=== PATIENT | male | born 1960 | race African-American/Black ===

== ENCOUNTER 2016-08-04 14:51 | Emergency (ER) | payer SELFPAY ==
[~2016-08-04] VITALS: Ht 167.6 cm; Wt 61.0 kg
[~2016-08-04 14:51] MED LIST: Z.0.NO CURRENT MEDS
[2016-08-04 14:53] VITALS: BP 137/66; PULSE 93; RESP 15; TEMP 97.7; O2SAT 99
--- NOTE | 2016-08-04 15:46 | PD ---
HPI Chief Complaint: Complaint Time Seen by Provider: 15:40 Travel History International Travel<30 days: No Contact w/Intl Traveler<30days: No Traveled to known affect area: No History of Present Illness HPI Patient is a 56-year-old male presenting to emergency department for evaluation of a hernia as well as a swollen testicle. Patient states he has a right inguinal hernia has been present for approximately one year. Patient states it' s been getting larger however he is able to reduce it. He has no changes in his bowel habits, no abdominal pain. Patient also complains of left testicular swelling. Patient states this started 2 weeks ago. He denies any dysuria, he states he has sexual relations with the same person, no recent risky sexual behavior. Patient states the left testicle is 3-4 times larger than the right testicle. PFSH Past Medical History Medical History: Denies Significant Hx Tetanus Vaccination: Unknown Influenza Vaccination: No Past Surgical History Surgical History: No Previous Surgery Social History Alcohol Use: No Tobacco Use: Yes (2-3 CIGARS PER DAY) Substance Use: No Allergies-Medications (Allergen,Severity, Reaction): Coded Allergies: Tetracycline (Verified Allergy, Severe, 08/04/16) Reported Meds & Prescriptions Reported Meds & Active Scripts Active No Active Prescriptions or Reported Medications Review of Systems Except as stated in HPI: all other systems reviewed are Neg Genitourinary: Positive: Other (right inguinal hernia, left testicle swollen) Physical Exam Narrative GENERAL: Well-developed, well-nourished female resting comfortably in no acute distress. SKIN: Warm and dry. HEAD: Atraumatic. Normocephalic. EYES: Pupils equal and round. No scleral icterus. No injection or drainage. ENT: No nasal bleeding or discharge. Mucous membranes pink and moist. NECK: Trachea midline. No JVD. CARDIOVASCULAR: Regular rate and rhythm. No murmur appreciated. RESPIRATORY: No accessory muscle use. Clear to auscultation. Breath sounds equal bilaterally. GASTROINTESTINAL: Abdomen soft, non-tender, nondistended. Hepatic and splenic margins not palpable. Right inguinal hernia, easily reducible. GENITOURINARY: Circumcised. Testes descended bilaterally without evidence of rotation. No lesions or erythema. No urethral discharge. Left testicle is significantly larger than the right, tender to palpation. No erythema, no fluctuance noted. MUSCULOSKELETAL: No obvious deformities. No clubbing. No cyanosis. No edema. NEUROLOGICAL: Awake and alert. No obvious cranial nerve deficits. Motor grossly within normal limits. Normal speech. PSYCHIATRIC: Appropriate mood and affect; insight and judgment normal. Data Data Last Documented VS Vital Signs Date Time Temp Pulse Resp B/P Pulse Ox O2 Delivery O2 Flow Rate FiO2 08/04/16 14:53 97.7 93 15 137/66 99 Orders Urinalysis - C+S If Indicated (08/04/16 15:39) Gc And Chlamydia Pcr (08/04/16 15:39) Us Testicles W Doppler (08/04/16 15:39) Labs Laboratory Tests Test 08/04/16 15:45 Urine Color YELLOW Urine Turbidity CLEAR Urine pH 6.0 Urine Specific [place] 1.032 Urine Protein 30 mg/dL Urine Glucose (UA) NEG mg/dL Urine Ketones NEG mg/dL Urine Occult Blood NEG Urine Nitrite NEG Urine Bilirubin NEG Urine Urobilinogen 2.0 MG/DL Urine Leukocyte Esterase SMALL Urine RBC 2 /hpf Urine WBC 9 /hpf Urine Bacteria RARE /hpf Urine Mucus MANY /lpf Microscopic Urinalysis Comment CULT NOT INDICATED MDM Medical Decision Making Medical Screen Exam Complete: Yes Emergency Medical Condition: Yes Interpretation(s) Vital Signs Date Time Temp Pulse Resp B/P Pulse Ox O2 Delivery O2 Flow Rate FiO2 08/04/16 14:53 97.7 93 15 137/66 99 Differential Diagnosis Epididymitis versus epididymal orchitis versus STI versus urinary tract infection versus other Narrative Course Patient is a 56 year old male presented to the emergency department for evaluation of 2 weeks of left testicle swelling as well as right inguinal hernia. Hernia present for over a year, it is easily reducible. Positive bowel sounds, there is no change in his bowel habits. Regarding the testicle, he states it got more painful which is what prompted the ER visit. Patient also thought it would get better on its own. He has had sexual contact but states that with the same partner. Possibility of epididymitis versus chronic epididymoorchitis. UA, GC chlamydia ordered and pending. Testicular ultrasound ordered and pending. Care of patient will be transferred to Dr. Dr. Pang in medical pod Scripts No Active Prescriptions or Reported Meds Aundrea Boyd Aug 04, 2016 15:46
[2016-08-04 16:25] LABS: BACTERIA, URINE RARE /hpf; BLOOD, URINE NEG (NEG); COMMENT (UR) CULT NOT INDICATED; CULTURE IF INDICATED CULT NOT INDICATED; GLUCOSE,URINE NEG (NEG); KETONE, URINE NEG (NEG); MUCUS URINE MANY /lpf (OCC); NITRITE,URINE NEG (NEG); URINE COLOR YELLOW (YELLW/STRAW)
--- NOTE | 2016-08-04 17:16 | PD ---
Data Data Last Documented VS Vital Signs Date Time Temp Pulse Resp B/P Pulse Ox O2 Delivery O2 Flow Rate FiO2 08/04/16 14:53 97.7 93 15 137/66 99 Orders Urinalysis - C+S If Indicated (08/04/16 15:39) Gc And Chlamydia Pcr (08/04/16 15:39) Us Testicles W Doppler (08/04/16 15:39) Labs Laboratory Tests Test 08/04/16 15:45 Urine Color YELLOW Urine Turbidity CLEAR Urine pH 6.0 Urine Specific [place] 1.032 Urine Protein 30 mg/dL Urine Glucose (UA) NEG mg/dL Urine Ketones NEG mg/dL Urine Occult Blood NEG Urine Nitrite NEG Urine Bilirubin NEG Urine Urobilinogen 2.0 MG/DL Urine Leukocyte Esterase SMALL Urine RBC 2 /hpf Urine WBC 9 /hpf Urine Bacteria RARE /hpf Urine Mucus MANY /lpf Microscopic Urinalysis Comment CULT NOT INDICATED MDM Supervised Visit with [facility]IS: Yes Narrative Course I, Dr. Godinez, have reviewed the advance practice practitioner's documentation and am in agreement, met with the patient face to face, made the diagnosis, and the medical decision making was done by me. See her note for further details. The patient was initially evaluated in triage and transferred to a medical pot when it became available. Briefly this is a 56-year-old male who presented to the emergency department for evaluation of right inguinal hernia as well as a swollen left testicle. The patient reports that he has had the right inguinal hernia for over one year and it is easily reducible. Patient noticed left testicular pain and swelling that started about one week ago. He was hoping that it would get better, however it has not, so he is here today for evaluation. He is sexually active with one partner. No dysuria or penile drainage. He denies testicular trauma. No fevers or chills. No nausea or vomiting. On physical exam the patient has an easily reducible right inguinal hernia that is nontender. His left testicle is significantly larger than his right testicle and is swollen. Overlying scrotal skin is normal appearing, not erythematous, no crepitus, no induration. Differential includes orchitis, STD, epididymitis, testicular torsion. Testicular ultrasound ordered. Testicular ultrasound: CONCLUSION: 1. Highly complex large hydrocele on the left with small simple hydrocele on the right. There is bilateral hyperemia suggesting an inflammatory process. I discussed the case with on-call urologist Dr. Young who recommends treating the patient with antibiotics for 10 days and follow-up as an outpatient. The patient was made aware of all findings and of plan. He is resting comfortably. Again his right inguinal hernia is easily reducible, no signs of strangulation or incarceration. His abdominal exam is benign. He was informed on when to return to the emergency department. He verbalizes understanding and agreement with plan. Diagnosis Primary Impression: Orchitis Additional Impression: Hydrocele Qualified Code: N43.1 - Infected hydrocele Referrals: Jerardo Young DO 1 week Urologist Additional Instruction: Follow-up with urologist Dr. Young or a urologist of your choice this week. Take antibiotic as prescribed. Return to the emergency department for worsening symptoms or any other concerns. Scripts Tramadol 50 Mg Tab50 Mg PO Q6H PRN (PAIN) #15 TAB Ref 0 Prov:Celso Godinez MD 08/04/16 Levofloxacin (Levaquin)500 Mg Xlm179 Mg PO DAILY 10 Days Ref 0 Prov:Celso Godinez MD 08/04/16 Disposition: 01 DISCHARGE HOME Condition: Stable Celso Godinez MD Aug 04, 2016 17:15
--- NOTE | 2016-08-04 17:40 | RADRPT ---
EXAM DATE/TIME: 08/04/2016 16:42 [facility] COMPARISON: No previous studies available for comparison. INDICATIONS : Swollen left testicle for one week with a known right inguinal hernia for one year. MEDICAL HISTORY : Hernia, inguinal. Bilateral testicle pain. Smoker. SURGICAL HISTORY : None. ENCOUNTER: Initial ACUITY: 1 week PAIN SCORE: 8/10 LOCATION: Left testicle. MEASUREMENTS: RIGHT TESTICLE: 3.9 x 3.2 x 2.1 cm SIZE (L x W x H) NATURE LOCATION LEFT TESTICLE: 3.0 x 2.6 x 2.3 cm FINDINGS: RIGHT TESTICLE: Homogeneous echotexture without intra or extratesticular mass. Blood flow is symmetric although hype remic. No varicocele. A small simple hydrocele. Epididymis is within normal limits. LEFT TESTICLE: Homogeneous echotexture without intra or extratesticular mass. Blood flow is symmetric although hype remic. There is a highly complex large hydrocele. This is septated. An appendix testes noted. No jeff icocele. Epididymis is within normal limits. SCROTUM: Within normal limits. CONCLUSION: 1. Highly complex large hydrocele on the left with small simple hydrocele on the right. There is bila teral hyperemia suggesting an inflammatory process. Hector Palencia Jr., MD on August 04, 2016 at 17:34 Board Certified Radiologist. This report was verified electronically.
[2016-08-04] MEDS ORDERED: LEVA500T PO (18:13)
[2016-08-04] MEDS ORDERED: TRAM50TA PO (18:13)
[2016-08-04] MEDS ORDERED: LIDOCAINE HCL 1% 50 ML VIAL XX ONE (18:15)
[2016-08-04] MEDS ORDERED: LEVOFLOXACIN 500 MG TAB PO ONE (18:15)
[2016-08-04] MEDS ORDERED: cefTRIAXone 250 MG VIAL IM ONE (18:15)
[2016-08-04] MEDS ORDERED: AZITHROMYCIN PWD FOR SUSP 1 GM PACKET PO ONE (18:15)
[2016-08-04 18:58] LABS: CHLAMYDIA PCR NOT DETECTED (NOT DETECT); NEISSERIA PCR NOT DETECTED (NOT DETECT)
== END 2016-08-04 19:06 | disposition home or self-care (01) ==
LOC: NEPA 14:51
DX: N43.1 Infected hydrocele (principal); N45.2 Orchitis; K40.91 Unilateral inguinal hernia, without obstruction or gangrene, recurrent; Z72.0 Tobacco use
CPT/HCPCS: 76870; 81001; 87491; 87591; 93975; 96372; 99284; J0696